=== PATIENT | female | born 2000 | race African-American/Black ===

== ENCOUNTER 2025-01-27 19:57 | Emergency (ER) | payer OTHER ==
[~2025-01-27] VITALS: Ht 172.7 cm; Wt 68.8 kg
[2025-01-27 20:17] LABS: KETONE, URINE AUTO RFX NEGATIVE (NEGATIVE); LEUKOCYTE ESTERASE UR AUTO RFX NEGATIVE (NEGATIVE); NITRITE, URINE AUTO RFX NEGATIVE (NEGATIVE); RBC, URINE AUTO RFX 0 /HPF (0-3); SQUAM EPITHELIAL CELL UR AURFX 2 /HPF (0-6); WBC, URINE AUTO RFX 1 /HPF (0-3)
[2025-01-27 20:55] LABS: PLATELET COUNT, AUTOMATED 249 10^3/uL (150-450)
[2025-01-27 21:46] LABS: HCG, SERUM QUANTITATIVE 111427.3 MIU/ML (<4.2)
[2025-01-27 23:48] LABS: BASO # 0.1 10^3/uL (0.0-0.2); BASO % 0.4 % (0.0-1.0); EOS # 0.1 10^3/uL (0.0-0.5); EOS % 0.8 % (0.0-3.0); LYMPH # 2.6 10^3/uL (1.5-5.0); LYMPH % 17.8 % (24.0-44.0); MONO # 0.9 10^3/uL (0.0-0.8); MONO % 6.3 % (2.0-8.0); NEUTROPHILS # 10.6 10^3/uL (1.5-8.5); NEUTROPHILS % 74.0 % (36.0-66.0)
[2025-01-28 00:09] LABS: CALCIUM LEVEL 8.7 MG/DL (8.5-10.1); CARBON DIOXIDE LEVEL 23 MMOL/L (20-31); CHLORIDE LEVEL 104 MMOL/L (98-107); CREATININE FOR GFR 0.74 MG/DL (0.55-1.30); GLOMERULAR FILTRATION RATE > 90.0 (>60); POTASSIUM SERUM 3.7 MMOL/L (3.5-5.1); SODIUM LEVEL 138 MMOL/L (136-145)
[2025-01-28] MEDS: NS (Normal Saline) 0.9% 1,000 ML IV SCH (00:38)
[2025-01-28] MEDS: metroNIDAZOLE 500 MG in IV 1 EA IV ONE (00:38)
[2025-01-28 01:14] LABS: Trichomonas vaginalis (AMP) NOT DETECTED (NEGATIVE)
[2025-01-28] MEDS: ADV IV ONE (01:14)
[2025-01-28] MEDS: MINI IV ONE (01:14)
[2025-01-28] MEDS: DEXTROSE 5% IV ONE (01:14)
[2025-01-28] MEDS: CEFOTETAN DISODIUM IV ONE (01:14)
[2025-01-28 01:37] LABS: GC DNA AMPLIFICATION NEGATIVE (NEGATIVE)
[2025-01-28] MEDS: D5W/0.9% SODIUM CHLORIDE 1,000 ML IV ONE (08:48)
[2025-01-28] MEDS: metroNIDAZOLE 500 MG in IV 1 EA IV SCH (08:54)
[2025-01-28 11:26] VITALS: BP 104/55; TEMP 97; O2SAT 99
[2025-01-28] MEDS ORDERED: MINI IV SCH (12:00)
[2025-01-28] MEDS ORDERED: DEXTROSE 5% IV SCH (12:00)
[2025-01-28] MEDS ORDERED: CEFOTETAN DISODIUM IV SCH (12:00)
[2025-01-28] MEDS ORDERED: ADV IV SCH (12:00)
== END 2025-01-28 11:40 | disposition home or self-care (01) ==
LOC: M ED 19:57
DX: O26.891 Other specified pregnancy related conditions, first trimester (principal); R10.32 Left lower quadrant pain; O99.891 Other specified diseases and conditions complicating pregnancy; R42 Dizziness and giddiness; Z3A.01 Less than 8 weeks gestation of pregnancy
CPT/HCPCS: 72195; 76705; 76801; 80048; 81001; 84702; 85027; 87040; 87661; 87810; 87850; 96361; 96365; 96366; 96367; 99285; J1836; S0074

== ENCOUNTER → 2025-02-12 | Outpatient (CLI) | payer OTHER ==
[2025-02-12 18:15] LABS: PLATELET COUNT, AUTOMATED 284 10^3/uL (150-450)
[2025-02-12 19:14] LABS: HIV 1&2 SCREEN NEGATIVE (NEGATIVE)
[2025-02-12 19:22] LABS: HEPATITIS C VIRUS ABY INDEX 0.17 INDEX (<0.8)
[2025-02-12 19:34] LABS: Trichomonas vaginalis (AMP) NOT DETECTED (NEGATIVE)
[2025-02-12 19:58] LABS: GC DNA AMPLIFICATION NEGATIVE (NEGATIVE)
== END ==
LOC: M PLALAB 16:31
PROVIDERS: ATTEND Student in an Organized Health Care Education/Training Program
DX: Z34.80 Encounter for supervision of other normal pregnancy, unspecified trimester (principal)

== ENCOUNTER → 2025-02-12 | Outpatient (REF) | payer OTHER | LOC: M PLALAB 14:50 | PROVIDERS: ATTEND Student in an Organized Health Care Education/Training Program | DX: Z34.80 Encounter for supervision of other normal pregnancy, unspecified trimester (principal) ==

== ENCOUNTER 2025-04-05 10:55 | Emergency (ER) | payer OTHER ==
[~2025-04-05] VITALS: Ht 172.7 cm; Wt 78.6 kg
[2025-04-05] MEDS ORDERED: MULTTAB20 PO (11:00)
[2025-04-05 11:35] LABS: KETONE, URINE AUTO RFX NEGATIVE (NEGATIVE); MUCUS, URINE RFX SMALL (NEGATIVE); NITRITE, URINE AUTO RFX NEGATIVE (NEGATIVE); RBC, URINE AUTO RFX 1 /HPF (0-3); SQUAM EPITHELIAL CELL UR AURFX 11 /HPF (0-6); WBC, URINE AUTO RFX 8 /HPF (0-3)
[2025-04-05 11:43] LABS: LEUKOCYTE ESTERASE UR AUTO RFX 1+ (NEGATIVE)
[2025-04-05 14:19] VITALS: BP 132/70; TEMP 98.1; O2SAT 100
[2025-04-05 15:46] LABS: Trichomonas vaginalis (AMP) NOT DETECTED (NEGATIVE)
[2025-04-05 15:57] LABS: HIV 1&2 SCREEN NEGATIVE (NEGATIVE)
[2025-04-05] MEDS ORDERED: NITR100C3 PO (16:40)
[2025-04-05 19:34] LABS: GC DNA AMPLIFICATION NEGATIVE (NEGATIVE)
== END 2025-04-05 16:45 | disposition left against medical advice (07) ==
LOC: M ED 10:55
DX: O23.42 Unspecified infection of urinary tract in pregnancy, second trimester (principal); Z3A.17 17 weeks gestation of pregnancy; Z79.2 Long term (current) use of antibiotics; Z79.899 Other long term (current) drug therapy; Z53.9 Procedure and treatment not carried out, unspecified reason